=== PATIENT | female | born 1985 | race Caucasian/White ===

== ENCOUNTER → 2018-12-12 | Outpatient (CLI) | payer MEDICAID | LOC: FIMAGING 10:16 | PROVIDERS: ATTEND Advanced Practice Midwife | DX: O99.282 Endocrine, nutritional and metabolic diseases complicating pregnancy, second trimester (principal); E03.9 Hypothyroidism, unspecified; Z3A.19 19 weeks gestation of pregnancy; Z14.1 Cystic fibrosis carrier ==